=== PATIENT | female | born 2000 | race Two or more races ===

== ENCOUNTER → 2024-04-20 | Outpatient (CLI) | payer OTHER ==
[2024-04-20 13:13] LABS: HEMATOCRIT 38.2 % (36.0-47.0); HEMOGLOBIN 13.3 g/dl (12.0-15.5); MEAN CORPUSCULAR HEMOGLOBIN 30.5 pg (27.0-33.0); MEAN CORPUSCULAR HGB CONC 34.8 g/dl (32.0-36.5); MEAN CORPUSCULAR VOLUME 87.6 fl (80.0-96.0); PLATELET COUNT, AUTOMATED 190 10^3/uL (150-450); RED BLOOD COUNT 4.36 10^6/uL (4.00-5.40); WHITE BLOOD COUNT 10.4 10^3/uL (4.0-10.0)
[2024-04-20 14:33] LABS: VITAMIN B12 LEVEL 500 PG/ML (211-911)
[2024-04-20 14:59] LABS: GC DNA AMPLIFICATION NEGATIVE (NEGATIVE)
[2024-04-20 15:20] LABS: HIV 1&2 SCREEN NEGATIVE (NEGATIVE)
[2024-04-20 15:32] LABS: HEPATITIS C VIRUS ABY INDEX 0.02 INDEX (<0.8)
== END ==
LOC: M PLALAB 10:03
PROVIDERS: ATTEND Nurse Practitioner Family
DX: Z34.01 Encounter for supervision of normal first pregnancy, first trimester (principal)

== ENCOUNTER → 2024-05-04 | Outpatient (CLI) | payer OTHER | LOC: M PLALAB 11:43 | PROVIDERS: ATTEND Nurse Practitioner Family | DX: Z31.430 Encounter of female for testing for genetic disease carrier status for procreative management (principal) ==

== ENCOUNTER → 2024-06-22 | Outpatient (REF) | payer BC | LOC: M PLALAB 11:28 | PROVIDERS: ATTEND Nurse Practitioner Family | DX: Z34.02 Encounter for supervision of normal first pregnancy, second trimester (principal); Z53.9 Procedure and treatment not carried out, unspecified reason ==

== ENCOUNTER → 2024-06-22 | Outpatient (CLI) | payer BC | LOC: M PLALAB 11:21 | PROVIDERS: ATTEND Nurse Practitioner Family | DX: Z34.02 Encounter for supervision of normal first pregnancy, second trimester (principal) ==

== ENCOUNTER → 2024-07-05 | Outpatient (CLI) | payer BC | LOC: M WHC 09:42 | PROVIDERS: ATTEND Nurse Practitioner Family | DX: Z34.02 Encounter for supervision of normal first pregnancy, second trimester (principal); Z3A.20 20 weeks gestation of pregnancy ==

== ENCOUNTER → 2024-08-24 | Outpatient (CLI) | payer BC ==
[2024-08-24 10:31] LABS: HEMATOCRIT 31.7 % (36.0-47.0); HEMOGLOBIN 10.7 g/dl (12.0-15.5); MEAN CORPUSCULAR HEMOGLOBIN 31.4 pg (27.0-33.0); MEAN CORPUSCULAR HGB CONC 33.8 g/dl (32.0-36.5); PLATELET COUNT, AUTOMATED 161 10^3/uL (150-450); RED BLOOD COUNT 3.41 10^6/uL (4.00-5.40); WHITE BLOOD COUNT 8.8 10^3/uL (4.0-10.0)
[2024-08-24 10:38] LABS: GLUCOSE CHALLENGE TEST 1 HOUR 98 MG/DL (LESS THAN 140)
[2024-08-24 11:08] LABS: HIV 1&2 SCREEN NEGATIVE (NEGATIVE)
[2024-08-24 11:16] LABS: HEPATITIS C VIRUS ABY INDEX 0.02 INDEX (<0.8)
[2024-08-24 12:00] LABS: GC DNA AMPLIFICATION NEGATIVE (NEGATIVE)
== END ==
LOC: M PLALAB 07:42
PROVIDERS: ATTEND Nurse Practitioner Family
DX: Z34.80 Encounter for supervision of other normal pregnancy, unspecified trimester (principal)